=== PATIENT | female | born 1955 | race Caucasian/White ===

== ENCOUNTER 2022-04-14 09:26 | Emergency (ER) | payer OTHER, MEDICAID ==
[~2022-04-14] VITALS: Ht 157.5 cm; Wt 45.9 kg
[2022-04-14 10:13] VITALS: BP 149/83
[2022-04-14] MEDS ORDERED: ACE650RS PR ×2 (10:42→11:23)
[2022-04-14] MEDS ORDERED: HYDROcodone-ACET 5/325MG TAB PO ONE (10:45)
[2022-04-14] MEDS ORDERED: ACET-1080 PO (11:23)
== END 2022-04-14 10:52 | disposition home or self-care (01) ==
LOC: ER 09:26
DX: S52.502A Unspecified fracture of the lower end of left radius, initial encounter for closed fracture (principal); I10 Essential (primary) hypertension; J44.9 Chronic obstructive pulmonary disease, unspecified; Z79.899 Other long term (current) drug therapy; Z88.0 Allergy status to penicillin; W01.0XXA Fall on same level from slipping, tripping and stumbling without subsequent striking against object, initial encounter; Y93.89 Activity, other specified; Y92.89 Other specified places as the place of occurrence of the external cause; Y99.8 Other external cause status
CPT/HCPCS: 29125; 73110

== ENCOUNTER 2022-04-24 12:57 | Emergency (ER) | payer OTHER, MEDICAID ==
[~2022-04-24] VITALS: Ht 157.5 cm; Wt 50.0 kg
[~2022-04-24 12:57] MED LIST: ACET-1080 PO
[2022-04-24 13:22] VITALS: BP 137/85
== END 2022-04-24 16:10 | disposition left against medical advice (07) ==
LOC: ER 12:57
DX: M79.602 Pain in left arm (principal); Z53.21 Procedure and treatment not carried out due to patient leaving prior to being seen by health care provider